=== PATIENT | female | born 1985 ===

== ENCOUNTER 2018-08-25 11:14 | Inpatient (IN) | payer MEDICAID ==
[2018-08-25 11:17] VITALS: BMI 17.7
--- NOTE | 2018-08-25 11:30 | C.PDOC ---
History Of Present Illness Patient MERLYN from home for spontaneoust vaginal delivery at home. As per EMS, baby was hanging out of the vagina when they arrived, and placenta has not yet been passed. Patient states she is 9 months , has two other live children. She has no current complaints. Time Seen by Provider: 08/25/18 11:15 Chief Complaint (Nursing): Medical Clearance History Per: Patient, EMS History/Exam Limitations: no limitations Current Symptoms Are (Timing): Better Past Medical History Reviewed: Historical Data, Nursing Documentation, Vital Signs Vital Signs: Last Vital Signs Temp 97.5 F L 08/25/18 11:20 Pulse 84 08/25/18 11:20 Resp 22 08/25/18 11:20 BP 111/60 08/25/18 11:20 Pulse Ox 100 08/25/18 11:20 - Medical History PMH: No Chronic Diseases Family History: States: No Known Family Hx - Social History Hx Alcohol Use: No Hx Substance Use: No - Immunization History Hx Tetanus Toxoid Vaccination: No Hx Influenza Vaccination: No Hx Pneumococcal Vaccination: No Review Of Systems Constitutional: Negative for: Fever Cardiovascular: Negative for: Chest Pain Respiratory: Negative for: Shortness of Breath Gastrointestinal: Positive for: Other (labor pain earlier). Negative for: Nausea, Vomiting Skin: Negative for: Rash Neurological: Negative for: Headache, Dizziness Physical Exam - Physical Exam Appears: Well, Non-toxic, No Acute Distress Skin: Normal Color, Warm, Dry Oral Mucosa: Moist Cardiovascular: Rhythm Regular Respiratory: Normal Breath Sounds, No Rales, No Rhonchi, No Wheezing Gastrointestinal/Abdominal: Other (gravid appearing abdomen ) ED Course And Treatment O2 Sat by Pulse Oximetry: 100 (RA) Pulse Ox Interpretation: Normal Progress Note: Patient brought to L&D from ER. Disposition - Disposition
[2018-08-25] MEDS ORDERED: Oxycodone/Acetaminophen 5/325 mg Tab PO PRN (12:00)
[2018-08-25 12:39] LABS: BASO # 0.1 K/uL (0.0-0.2); BASO % 0.6 % (0.0-2.0); HEMOGLOBIN 9.4 g/dL (11.0-16.0); LYMPH # 1.1 K/uL (1.0-4.3); LYMPH % 8.6 % (20.0-40.0); MEAN CORPUSCULAR HEMOGLOBIN 21.7 pg (27.0-31.0); MEAN CORPUSCULAR HGB CONC 30.5 g/dL (33.0-37.0); MEAN PLATELET VOLUME 7.3 fL (7.2-11.7); MONO # 0.3 K/uL (0.0-0.8); MONO % 2.6 % (0.0-10.0); NEUT # 10.8 K/uL (1.8-7.0); NEUT % 88.2 % (50.0-75.0); NRBC % 0.1 % (0.0-2.0); PLATELET COUNT 446 K/uL (130-400); RBC 4.34 Mil/uL (3.80-5.20); RED CELL DISTRIBUTION WIDTH 18.1 % (11.5-14.5); WHITE BLOOD COUNT 12.2 K/uL (4.8-10.8)
[2018-08-25 12:42] LABS: URINE BACTERIA OCC (<OCC); URINE BILIRUBIN NEGATIVE (NEGATIVE); URINE BLOOD NEGATIVE (NEGATIVE); URINE CLARITY Hazy (Clear); URINE COLOR Yellow (YELLOW); URINE GLUCOSE (UA) NORMAL (Normal); URINE LEUKOCYTE ESTERASE 3+ Leu/uL (Negative); URINE PROTEIN NEGATIVE (NEGATIVE); URINE UROBILINOGEN NORMAL mg/dL (0.2-1.0)
[2018-08-25 12:59] LABS: ALB/GLOB RATIO 0.9 (1.0-2.1); ALBUMIN 4.1 g/dL (3.5-5.0); ANISOCYTOSIS SLIGHT; AST/SGOT 30 U/L (14-36); BASOPHIL 1 % (0-2); BLOOD UREA NITROGEN 8 mg/dL (7-17); CALCIUM 9.3 mg/dl (8.6-10.4); GFR NON-AFRICAN AMERICAN > 60; HYPOCHROMIC SLIGHT; LYMPHOCYTE 11 % (20-40); MONOCYTE 2 % (0-10); NEUTROPHIL 86 % (50-75); PLATELET ESTIMATE SLIGHTLY INCREASED (NORMAL); POIKILOCYTOSIS SLIGHT; TOTAL CELLS COUNTED 100
[2018-08-25 13:08] LABS: ALT/SGPT < 6 U/L (9-52)
--- NOTE | 2018-08-25 16:38 | OBDS ---
DELIVERY PERSONNEL Delivery Doctor: Armen Ramos MD Distiller: Kayla Jara RN MATERNAL INFORMATION Delivery Anesthesia: None Medications in Delivery: Pitocin 20 units IV after placenta delivery Placenta Cultured: Yes Maternal Complications: None RN Comments: Vaginal delivery at home. Baby Boy. Placenta delivered at hospital Provider Comments: S/P extramural delivery Spontaneous delivery of placenta - grossly intact, 3 vessel cord Uterine exploration performed. Uterus evacuated of clots and blood; contracted and firm Cervix, vagina, perineum inspected - no lacerations Patient in stable condition EBL 150 mL Weight 5lb 1oz LABOR SUMMARY No. Babies in Womb: 1 Attempted: N/A Labor Anesthesia: N/A LABOR INFORMATION Oxytocin: N/A Group B Beta Strep: Not Done Antibiotics # of Doses: 0 Antibiotics Time of Last Dose: 0 Steroids Given: None Reason Steroids Not Administered: Not Applicable MEMBRANES Membranes Rupture Method: Spontaneous Rupture of Membranes: 08/25/2018 10:25 Length of Rupture (hrs): 0.00 Amniotic Fluid Color: White CLear like urine as per patient Amniotic Fluid Amount: Small as per patient Amniotic Fluid Odor: Unknown STAGES OF LABOR Stage 3 hrs: 1 Stage 3 min: 25 VAGINAL DELIVERY Episiotomy: None Laceration Extension: N/A Laceration Type: None Laceration Repair: Not Applicable Initial Vag Sponge Count: 10 Final Vag Sponge Count: 10 Initial Vag Sharps Count: 0 Final Vag Sharps Count: 0 Sponge Count Correct: Yes; Vaginal Sweep Performed Sharps Count Correct: Yes Count Comment: ONLY DELIVERED PLACENTA. BABY A INFORMATION Delivery Date/Time: 08/25/2018 10:25 Method of Delivery: Vaginal Born in Route : Yes : N/A Forceps: N/A Vacuum Extraction: N/A Shoulder Dystocia : No SHOULDER DYSTOCIA BABY A Infant Delivery Date/Time: 08/25/2018 10:25 PRESENTATION/POSITION BABY A Presentation: UNKNOWN Cephalic Presentation: UNKNOWN Vertex Position: UNKNOWN Breech Presentation: UNKNOWN PLACENTA INFORMATION BABY A Placenta Delivery Time : 08/25/2018 11:50 Placenta Method of Delivery: Spontaneous Placenta Status: Delivered INFANT INFORMATION BABY A Gestational Age at Delivery: UNKNOWN Gestational Status: UNKNOWN Outcome : Liveborn Infant Condition : Stable Infant Sex: Male IDENTIFICATION/MEDS BABY A ID Band Number: [id number] ID Band Location: Left Leg; Left Arm Sensor Applied: Yes Sensor Number: [id number] Sensor Location : Cord Clamp WEIGHT/LENGTH BABY A Infant Birthweight (gms): 2290 Infant Weight (lb): 5 Infant Weight (oz): 1 Length Inches: 17.50 Infant Length cms: 44.5 CORD INFORMATION BABY A No. Cord Vessels: 3 Nuchal Cord : N/A Cord Blood Taken: N/A ASSESSMENT BABY A Complications: None Physical Findings at Delivery: Within Normal Limits Infant Respirations: Appears Normal Product Scientist/ALS Called : Yes Care By: present upon arrival to Labor and Delivery Transferred To: Nursery
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
[2018-08-25 19:09] LABS: BARBITURATES, UR NEGATIVE (NEGATIVE); BENZODIAZEPINES, UR NEGATIVE (NEGATIVE); OPIATES, UR NEGATIVE (NEGATIVE); PHENCYCLIDINE, UR NEGATIVE (NEGATIVE)
[2018-08-26 08:33] LABS: BASO % 0.2 % (0.0-2.0); EOS % 0.1 % (0.0-4.0); HEMOGLOBIN 8.4 g/dL (11.0-16.0); LYMPH # 1.9 K/uL (1.0-4.3); LYMPH % 14.2 % (20.0-40.0); MEAN CELL VOLUME 71.7 fL (81.0-99.0); MEAN CORPUSCULAR HEMOGLOBIN 21.6 pg (27.0-31.0); MEAN CORPUSCULAR HGB CONC 30.1 g/dL (33.0-37.0); MEAN PLATELET VOLUME 7.2 fL (7.2-11.7); MONO # 0.5 K/uL (0.0-0.8); MONO % 3.9 % (0.0-10.0); NEUT # 11.2 K/uL (1.8-7.0); NEUT % 81.6 % (50.0-75.0); RBC 3.89 Mil/uL (3.80-5.20); RED CELL DISTRIBUTION WIDTH 18.1 % (11.5-14.5); WHITE BLOOD COUNT 13.7 K/uL (4.8-10.8)
--- NOTE | 2018-08-26 11:20 | OBPPN ---
Datetime: 08/26/2018 10:17 PP Pain Prov: Within normal limits PP Nausea Prov: Denies PP Flatus Prov: Yes PP BM Prov: No PP Breasts Prov: Not Done PP Heart Prov: Normal PP Lungs Prov: Normal PP Abdomen/Uterus Prov: Normal PP Lochia Prov: Normal PP Vulva/Perineum Prov: Not Done PP CVA Tenderness Prov: Not Done PP Extremities Prov: Normal PP C/S Incision Prov: Not Applicable PP Progress Prov: Not Applicable PP Impression Prov: Normal progression PP Plan Prov: Continue present management; Antibiotic therapy PP Progress Note Prov: Subjective: Bethany Suarez is a 32 year old female, , status post extramural vaginal delivery day 1. She de nies any complaints of pain. She has minimal lochia, and goes through about 2 pads a day. She states that she has had flatus, and has voided, but has not passed a bowel movement. She is not breastfeedin g, and intends to only use formula with the baby. Objective: vitals- see above. Gen Appearance- in no acute distress, AAOx3. Heart- RRR Lungs- CTA bilaterally Abdomen- normoactive bowel sounds. Extremities- no edema, no erythema bilaterally. Fundal Height- Uterine Fundus palpated 2 finger breadths below umbilicus. Labs- Hemoglobin: 8.4 L Hct: 27.9 Platelets: 390 WBCs: 13.7 Assessment: 32 year old status post extramural vaginal delivery day 1 Plan: -Multivitamin tablets -Iron -Follow up Member Of Parliament in 1 week -Follow up social work with plan of care -Discussed contraception- pt is planning on elective surgery to become sterile _Brenna Maya OMAndrew III I agree with the above note written by Student Doctor Francesco Addendum: A/P: s/p Extramural NSD PPD#1 VSS Anemia - Hb 8.4 continue ferrous sulfate Social work consultation regarding adoption- Pt stilll undecided. Continue post care IP PP Procedures: Antibiotics Vital Signs Provider PP: Reviewed; Within Normal Limits
[2018-08-27] MEDS ORDERED: Influenza Vaccine 60 mcg/0.5 mL SYR (4YR UP) IM ONE (10:23)
--- NOTE | 2018-08-27 10:42 | OBPPN ---
Datetime: 08/27/2018 10:37 PP Pain Prov: Within normal limits PP Nausea Prov: Denies PP Flatus Prov: Yes PP BM Prov: Yes PP Breasts Prov: Normal PP Abdomen/Uterus Prov: Normal PP Extremities Prov: Normal PP Comments Phys Exam Prov: PPD #2 Pt doing well. No complaints today. DC instructions discussed F/U in the clinic in 6 wks. PP Impression Prov: Normal progression PP Plan Prov: Continue present management; Discharge PP Progress Note Prov: PPD #2 Pt doing well. No complaints. DC instructions discussed Motrin for pain F/U in the clinic in 6 wks or earlier if needed. IP PP Procedures: None Vital Signs Provider PP: Reviewed; Within Normal Limits
--- NOTE | 2018-08-27 10:47 | OBDCSUM ---
Datetime: 08/27/2018 10:44 Discharged to, Provider: Home Follow up at, Provider: clinic Disch Instr Activity: Normal activity Discharge Instructions, Provider: Routine instructions given Discharge Diagnosis, Provider: Term Delivered Follow up in weeks, Provider: 6 wks Contraception discussed, Prov: Yes Disch Activity Restrictions: No exercising; No lifting; No driving; No sexual activity; Nothing in v agina - [place], tampons, douche
[2018-08-27 19:06] VITALS: BP 98/65; PULSE 94; RESP 20; TEMP 99.2; O2SAT 99
== END 2018-08-27 14:00 | disposition home or self-care (01) | DRG 560 ==
LOC: C.EROB 11:14 → C.4D 11:56 → C.4M 16:00
PROVIDERS: ADMIT Obstetrics & Gynecology; ATTEND Obstetrics & Gynecology
PROC: 10E0XZZ Delivery of Products of Conception, External Approach (ICD-10-PCS; principal; 2018-08-25)
DX: O80 Encounter for full-term uncomplicated delivery (principal); Z37.0 Single live birth; Z3A.00 Weeks of gestation of pregnancy not specified